=== PATIENT | female | born 1955 | race Caucasian/White ===

== ENCOUNTER 2018-11-21 23:45 | Emergency (ER) | payer OTHER ==
[~2018-11-21] VITALS: Ht 165.1 cm; Wt 104.3 kg
[2018-11-21] MEDS ORDERED: NORCO 5-325 TA1 EAC1 PO (23:59)
[2018-11-22] MEDS ORDERED: TORADOL 10 MG T10 MG PO (00:29)
[2018-11-22] MEDS ORDERED: HYDROCODON-ACE1 EAC7 PO (00:29)
[2018-11-22] MEDS ORDERED: CYCLOBENZAPRINE5 MG PO (00:29)
[2018-11-22 00:44] VITALS: BP 168/79
== END 2018-11-22 00:44 | disposition home or self-care (01) ==
LOC: M.ERS 23:45
DX: M43.6 Torticollis (principal)